=== PATIENT | female | born 1965 | race Caucasian/White ===

== ENCOUNTER 2016-10-28 19:25 | Emergency (ER) | payer OTHER, MEDICAID ==
[~2016-10-28] VITALS: Ht 160 cm; Wt 82.0 kg
[2016-10-28 19:36] VITALS: BP 153/100; PULSE 89; RESP 18; TEMP 98; O2SAT 95
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
[2016-10-28] MEDS ORDERED: LEVO25TA4 PO (19:46)
[2016-10-28] MEDS ORDERED: METO50TA PO (19:46)
[2016-10-28] MEDS ORDERED: ZOLO25TA PO (19:46)
[2016-10-28] MEDS ORDERED: FAMO1TAB30 PO (19:46)
[2016-10-28] MEDS ORDERED: MECL12.574 PO (19:46)
[2016-10-28] MEDS ORDERED: OMEP20TA PO (19:46)
[2016-10-28] MEDS ORDERED: AMIT10TA6 PO (19:46)
[2016-10-28] MEDS ORDERED: ROPI0.25 PO (19:46)
[2016-10-28] MEDS ORDERED: BUTA1CAP PO (19:46)
[2016-10-28] MEDS ORDERED: SODIUM CHLOR 0.9% 1000 ML INJ 1,000 ML IV ONE (20:00)
[2016-10-28] MEDS ORDERED: SODIUM CHLORIDE 0.9% FLUSH 5 ML FLUSH IVF PRN (20:00)
[2016-10-28] MEDS ORDERED: MORPHINE SULFATE 4 MG/ML INJ IV PUSH ONE (20:00)
[2016-10-28 20:58] VITALS: RESP 18
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
[2016-10-28] MEDS ORDERED: IODIXANOL 320 MG/ML 10 ML VIAL (for RAD SPEC) IV ONE (21:46)
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
[2016-10-28 22:04] LABS: AUTOMATED NEUTROPHIL # 7.6 TH/MM3 (1.8-7.7); BASOPHIL # 0.1 TH/MM3 (0-0.2); BASOPHIL % 0.6 % (0.0-2.0); EOSINOPHIL # 0.2 TH/MM3 (0-0.4); EOSINOPHIL % 1.5 % (0.0-4.0); HEMO FLAGS DIFF FINAL; LYMPH % 23.7 % (9.0-44.0); LYMPHOCYTE # 2.8 TH/MM3 (1.0-4.8); MEAN CELL VOLUME 86.3 FL (80.0-100.0); MEAN CORPUSCULAR HEMOGLOBIN 29.3 PG (27.0-34.0); MEAN CORPUSCULAR HGB CONC 33.9 % (32.0-36.0); MONO % 10.5 % (0.0-8.0); NEUT % 63.7 % (16.0-70.0); PLATELET COUNT 319 TH/MM3 (150-450); RED BLOOD COUNT 4.63 MIL/MM3 (4.00-5.30); RED CELL DISTRIBUTION WIDTH 13.3 % (11.6-17.2)
[2016-10-28 22:11] LABS: APTT (PATIENT) 26.6 SEC (24.3-30.1); INTERNATIONAL NORMALIZED RATIO 0.9 RATIO; PROTHROMBIN TIME - PATIENT 10.4 SEC (9.8-11.6)
[2016-10-28 22:51] LABS: BICARBONATE 30.3 MEQ/L (21.0-32.0); POTASSIUM 3.3 MEQ/L (3.5-5.1)
[2016-10-29] MEDS ORDERED: POTASSIUM CHLORIDE 20 MEQ CONTROLLED RELEASE TAB PO ONE
[2016-10-29] MEDS ORDERED: HYDR-3516 PO (00:02)
[2016-10-29 00:45] VITALS: O2SAT 99
== END 2016-10-29 00:46 | disposition home or self-care (01) ==
LOC: NEPE 19:25
DX: S13.4XXA Sprain of ligaments of cervical spine, initial encounter (principal); N28.9 Disorder of kidney and ureter, unspecified; R07.9 Chest pain, unspecified; V89.2XXA Person injured in unspecified motor-vehicle accident, traffic, initial encounter
CPT/HCPCS: 70450; 71260; 72125; 74177; 80048; 85025; 85610; 85730; 86850; 86900; 86901; 96361; 96374; 99284; J2270; J7030; Q9967